=== PATIENT | female | born 1935 | race Hispanic/Latino ===

== ENCOUNTER 2024-10-03 11:15 | Emergency (ER) | payer MEDICARE, OTHER ==
[~2024-10-03] VITALS: Ht 152.4 cm; Wt 45.0 kg
[~2024-10-03 11:15] MED LIST: PHENYTOIN PO
[2024-10-03 11:50] VITALS: TEMP 97.7
[2024-10-03] MEDS ORDERED: OMEPRAZOLE40 MG PO (13:49)
[2024-10-03] MEDS ORDERED: LOSARTAN POTASS25 MG PO (13:49)
[2024-10-03] MEDS ORDERED: LOVASTATIN40 MG PO (13:49)
[2024-10-03] MEDS ORDERED: ST. JOSEPH ASPI81 M2 PO (13:49)
[2024-10-03] MEDS ORDERED: IBANDRONATE SO150 MG PO (13:49)
[2024-10-03] MEDS ORDERED: PERIDEX473 M1 PO (15:16)
[2024-10-03 15:40] VITALS: PULSE 103; RESP 18; O2SAT 98
[2024-10-03] MEDS: TRAMADOL HCL 50 MG TAB PO ONE (15:57)
[2024-10-03] MEDS ORDERED: ULTRAM 50MG50 MG PO (16:01)
== END 2024-10-03 16:05 | disposition home or self-care (01) ==
LOC: EDBD 14:44 → ER 14:44
DX: R68.84 Jaw pain (principal); K05.10 Chronic gingivitis, plaque induced; I10 Essential (primary) hypertension; E78.5 Hyperlipidemia, unspecified; G40.909 Epilepsy, unspecified, not intractable, without status epilepticus; K21.9 Gastro-esophageal reflux disease without esophagitis; Z98.2 Presence of cerebrospinal fluid drainage device
CPT/HCPCS: 93005; 99283